=== PATIENT | male | born 1985 | race Caucasian/White ===

== ENCOUNTER 2019-11-30 16:53 | Emergency (ER) | payer OTHER, SELFPAY ==
--- NOTE | ~2019-11-30 | XR_ITS ---
EXAMINATION: XR ankle RT min 3V INDICATION: Right ankle pain, initial encounter TECHNIQUE: Four views of the right ankle are obtained. COMPARISON: None available FINDINGS: There is cortical irregularity of the distal fibula at and above the level of the tibial pl afond. There is adjacent soft tissue swelling of ankle. The ankle mortise is intact. Irregularity of the medial malleolus has the appearance of prior fracture or osteoarthritis. Dorsal and plantar calca radha enthesophytes are noted. IMPRESSION: 1. Findings suggestive of acute versus subacute distal fibular fracture. Reviewed, dictated and finalized at location A.
--- NOTE | ~2019-11-30 | XR_ITS ---
EXAMINATION: XR knee LT 3V DATE: 11/30/2019 17:28 INDICATION: Left knee pain TECHNIQUE: Four views of the left knee were obtained. COMPARISON: None. FINDINGS: Alignment is normal. No fracture or osteochondral lesion. Joint spaces are normal with no e rosions. No joint effusion/synovitis. Multiple soft tissue calcifications are noted. IMPRESSION: 1. No acute osseous abnormality. Reviewed, dictated and finalized at location A.
[2019-11-30 17:04] VITALS: BP 168/87; PULSE 91; RESP 14; TEMP 36.8; O2SAT 97
--- NOTE | 2019-11-30 17:12 | ED.GENADULT ---
HPI - General Adult General Chief complaint: Extremity Injury, Lower Stated complaint: r ankle pain History of Present Illness HPI narrative: Ashwin is a 34M with no significant PMH that presented to the ED with right ankle pain. He has had pain that cam on insidiously over the last month. Pain was the worst yesterday with 10/10 pain on the medial and anterior ankle. It is 5/10 after ibuprofen today. He denies any trauma, injury or inciting incident. He has broken both ankles as a child. Ashwin has had worsening left knee pain that has been gradually getting worse since he wrestles in high school 15 years ago. It is now sore when he walks on it and is especially sore today. No recent trauma or injury. Related Data Home Medications Medication Instructions Recorded Confirmed No Home Medications 11/30/19 11/30/19 Allergies Allergy/AdvReac Type Severity Reaction Status Date / Time No Known Allergies Allergy Unverified 01/27/17 12:03 Review of Systems Constitutional: Constitutional: Denies chills and Denies fever(s) Eyes: Eyes: Reports no additional eye complaints ENT: Reports system reviewed and no additional complaints, except as documented Cardiovascular: Cardiovascular: Denies chest pain and Denies radiating jaw, neck or arm pain Respiratory: Respiratory: Denies cough and Denies dyspnea Gastrointestinal: Gastrointestinal: Reports no additional gastrointestinal complaints Genitourinary: Genitourinary: Reports no additional male genitourinary complaints Musculoskeletal: Musculoskeletal: Reports as per HPI Integumentary/Breasts: Skin/Breast: Reports system reviewed and no additional complaints, except as docu Neurologic: Reports system reviewed and no additional complaints, except as documented Psychiatric: Psychiatric: Reports no additional psychiatric complaints Exam Const: General: no acute distress and alert Orientation/consciousness: patient oriented x3 Limitations: No altered mental status HENMT: Head: normal to inspection Eyes: Pupils: Equal, round and reactive pupils present Neck: Neck: normal visual inspection Chest: Chest palpation & inspection: normal inspection of the chest Resp: Effort & Inspection: normal respiratory effort and not tachypneic Auscultation: clear to auscultation bilaterally Cardio: Rate: regular rate Other: No lower extremity edema Skin: General skin exam: normal color Rashes: no rashes Neuro: General: patient oriented x3 and moves all extremities Extrem: Other: Right ankle slightly swollen with non-pitting edema. TTP over posterior medial Malleolus and over the navicular bone on the right ankle Left knee: No swelling or erythema. Negative anterior or posterior drawer tests, no varus or valgus laxity, negtive Kobe test. No TTP. Course Course Emergency Course: Ashwin was seen and evaluated. Order radioraphs of the left knee and right ankle. Refuses meds for pain. EXAMINATION: XR knee LT 3V DATE: 11/30/2019 17:28 INDICATION: Left knee pain TECHNIQUE: Four views of the left knee were obtained. COMPARISON: None. FINDINGS: Alignment is normal. No fracture or osteochondral lesion. Joint spaces are normal with no erosions. No joint effusion/synovitis. Multiple soft tissue calcifications are noted. IMPRESSION: 1. No acute osseous abnormality. EXAMINATION: XR ankle RT min 3V INDICATION: Right ankle pain, initial encounter TECHNIQUE: Four views of the right ankle are obtained. COMPARISON: None available FINDINGS: There is cortical irregularity of the distal fibula at and above the level of the tibial plafond. There is adjacent soft tissue swelling of ankle. The ankle mortise is intact. Irregularity of the medial malleolus has the appearance of prior fracture or osteoarthritis. Dorsal and plantar calcaneal enthesophytes are noted. IMPRESSION: 1. Findings suggestive of acute versus subacute distal fibular fracture. Radiographs were suspicious for fracture as abo
[2019-11-30 18:03] VITALS: RESP 15; O2SAT 97
== END 2019-11-30 18:05 | disposition home or self-care (01) ==
PROVIDERS: Emergency Provider Family Medicine
DX: S82.401A Unspecified fracture of shaft of right fibula, initial encounter for closed fracture (principal)
CPT/HCPCS: 73562; 73610; 99282; 99284; L2112

== ENCOUNTER 2020-10-13 06:07 | Emergency (ER) | payer OTHER, SELFPAY ==
[2020-10-13 06:23] LABS: Add Urine Microscopic? YES; Appearance Urine Cloudy (Clear); Bilirubin Urine Negative (Negative); Blood Urine 3+ (Negative); Color Urine Yellow (Yellow); Glucose Urine UA Negative (Negative); Ketones Urine Negative (Negative); Leukocyte Esterase Ur 2+ LEU/UL (Negative); Nitrate Urine Positive (Negative); Protein Urine 2+ (Negative); Specific Grav Ur 1.025 (1.010-1.020); Urobilinogen Urine 0.2 mg/dL (0.2-1.0)
--- NOTE | 2020-10-13 06:24 | ED.BACK ---
HPI - Back Pain/Injury General Chief Complaint: Back Pain/Injury Stated Complaint: Back pain Time Seen by Provider: 10/13/20 06:25 Source: patient Mode of arrival: ambulatory Limitations: no limitations History of Present Illness HPI Narrative: Patient states he has been having flank pain on the right side greater than the left since Thursday. He states he had fever and chills on Thursday. He has had increased frequency in urination and believes he has been constipated. Flank pain has been increasing in severity over the past few days and has been more severe this am. He comes in because of increasing flank pain which he says is now moderately severe, sharp and ongoing. This has not been relieved by measures taken at home. He states he has not had a bowel movement for several days. Onset (ago): day(s) Timing: constant Severity: moderate Quality: sharp Location: right flank Exacerbating factors: none Relieving factors: none Associated symptoms: denies other symptoms Related Data Home Medications Medication Instructions Recorded Confirmed No Home Medications 11/30/19 10/13/20 Allergies Allergy/AdvReac Type Severity Reaction Status Date / Time No Known Allergies Allergy Unverified 01/27/17 12:03 Review of Systems Constitutional: Constitutional: Reports chills and Reports fever(s) Eyes: Eyes: Reports no additional eye complaints ENT: Reports system reviewed and no additional complaints, except as documented Cardiovascular: Cardiovascular: Reports no additional cardiovascular complaints Respiratory: Respiratory: Reports no additional respiratory complaints Gastrointestinal: Gastrointestinal: Reports constipation Genitourinary: Genitourinary: Reports no additional male genitourinary complaints Musculoskeletal: Musculoskeletal: Reports no additional musculoskeletal complaints Integumentary/Breasts: Skin/Breast: Reports system reviewed and no additional complaints, except as docu Neurologic: Reports system reviewed and no additional complaints, except as documented Psychiatric: Psychiatric: Reports no additional psychiatric complaints Endocrine: Endocrine: Reports no additional endocrine complaints Hematologic/Lymphatic: Hematologic/Lymphatic: Reports no additional hematologic/lymphatic complaints Allergic/Immunologic: Allergic/Immunologic: Reports no additional allergic/immunologic complaints [facility] Past Medical History Medical History (Updated 10/13/20 @ 06:53 by Frank Luo MD) Ankle fracture Family History Family History (Updated 10/13/20 @ 06:42 by Frank Luo MD) Mother Obese Diabetes mellitus Social History Social History (Updated 10/13/20 @ 06:43 by Frank Luo MD) Smoking packs per day: 1 Smoking cigarettes per day: 20.0 Smoking status: Current every day smoker Tobacco type: cigarettes Alcohol intake: current Alcohol use details: drinks less through the week, more on weekends. Drinks beer Gender identity (if verbalized by the patient): Male Exam Const: General: no acute distress Orientation/consciousness: patient oriented x3 HENMT: Head: normal to inspection Ears: external ears normal General nose exam: Normal external nose present Eyes: Conjunctivae: conjunctivae normal Neck: Neck: normal visual inspection Chest: Chest palpation & inspection: normal inspection of the chest Resp: Effort & Inspection: normal respiratory effort Auscultation: clear to auscultation bilaterally Cardio: Rate: regular rate Rhythm: regular rhythm GI: Other: Soft, nontender Skin: General skin exam: normal color Neuro: General: patient oriented x3 and moves all extremities Extrem: General: normal to inspection Psych: Appearance: grossly normal Mental Status: mental status grossly normal Thought content: Yes Normal thought content present Course Course Emergency Course: labs pending, by urinalysis it appears he has pyelonephritis. Sign out to D
[2020-10-13 06:25] VITALS: BP 143/99; PULSE 94; RESP 20; TEMP 37.4; O2SAT 96
[2020-10-13 06:28] LABS: Bacteria Urine 4+ /hpf; RBC Urine >75 /hpf (0-2); Squamous Epithelial Cell Urine None seen /hpf (Few); WBC Urine >75 /hpf (0-3)
[2020-10-13 06:58] LABS: Basophils Absolute Auto 0.05 K/mm3 (0.00-0.10); Basophils Percent Auto 0.5 % (0.0-1.0); Eosinophils Absolute Auto 0.15 K/mm3 (0.02-0.50); Eosinophils Percent Auto 1.4 % (1.0-6.0); Hematocrit 43.5 % (40.0-54.0); Hemoglobin 14.9 g/dL (14.0-18.0); Immature Granulocyte Absolute 0.03 K/mm3 (0.00-0.00); Immature Granulocyte Percent A 0.3 % (0.0-0.0); Lymphocytes Absolute Auto 1.33 K/mm3 (1.10-4.50); Lymphocytes Percent Auto 12.3 % (18.0-42.0); Mean Corpuscular HGB Conc 34.3 g/dL (32.0-36.0); Mean Corpuscular Hemoglobin 32.3 pg (27.0-31.0); Mean Corpuscular Volume 94.2 fL (78.0-102.0); Mean Platelet Volume 9.8 fl (8.7-11.0); Monocytes Absolute Auto 1.07 K/mm3 (0.10-0.90); Monocytes Percent Auto 9.9 % (2.0-11.0); Neutrophils Absolute Auto 8.2 K/mm3 (1.7-7.2); Neutrophils Percent Auto 75.6 % (50.0-70.0); Platelet Count Result 216 K/mm3 (150-420); Red Blood Count 4.62 M/mm3 (4.70-6.10); Red Cell Distribution Width 12.2 % (11.6-14.4); White Blood Count 10.8 K/mm3 (4.8-10.8)
[2020-10-13] MEDS: cefTRIAXone 1 GM VIAL IM (07:08)
[2020-10-13 07:16] LABS: Alanine Aminotransferase 29 U/L (16-63); Albumin Level 3.2 g/dL (3.4-5.0); Alkaline Phosphatase 69 U/L (46-116); Anion Gap 6 mmol/L (8-16); Aspartate Amino Transferase 15 U/L (15-37); Bilirubin,Total 0.6 mg/dL (0.00-1.00); Blood Urea Nitrogen 17 mg/dL (7-18); Calcium 8.6 mg/dL (8.5-10.1); Carbon Dioxide 27 mmol/L (21-32); Chloride 102 mmol/L (98-108); Estimated CRCL calculation 122 ml/min; Estimated Glomerular Filt Rate > 60; Glucose 118 mg/dL (70-99); Osmolality Calculated 282 mOsm/kg (285-295); Sodium 135 mmol/L (136-145); Total Protein 7.5 g/dL (6.4-8.2)
[2020-10-13 07:20] LABS: Lactic Acid Reflex 0.7 mmol/L (0.4-2.0)
--- NOTE | 2020-10-13 07:29 | ED.BACK ---
HPI - Back Pain/Injury General Chief Complaint: Back Pain/Injury Stated Complaint: Back pain Time Seen by Provider: 10/13/20 06:25 Source: patient Limitations: no limitations History of Present Illness HPI Narrative: Patient states he has had back pain and increased frequency since .y Timing: constant Severity: moderate Quality: sharp Location: right flank Exacerbating factors: none Relieving factors: none Associated symptoms: denies other symptoms Related Data Home Medications Medication Instructions Recorded Confirmed No Home Medications 11/30/19 10/13/20 Allergies Allergy/AdvReac Type Severity Reaction Status Date / Time No Known Allergies Allergy Unverified 01/27/17 12:03 Review of Systems Constitutional: Constitutional: Reports no additional constitutional complaints Eyes: Eyes: Reports no additional eye complaints ENT: Reports system reviewed and no additional complaints, except as documented Cardiovascular: Cardiovascular: Reports no additional cardiovascular complaints Respiratory: Respiratory: Reports no additional respiratory complaints Gastrointestinal: Gastrointestinal: Reports constipation Genitourinary: Genitourinary: Reports no additional male genitourinary complaints Musculoskeletal: Musculoskeletal: Reports no additional musculoskeletal complaints Integumentary/Breasts: Skin/Breast: Reports system reviewed and no additional complaints, except as docu Neurologic: Reports system reviewed and no additional complaints, except as documented Psychiatric: Psychiatric: Reports no additional psychiatric complaints Endocrine: Endocrine: Reports no additional endocrine complaints Hematologic/Lymphatic: Hematologic/Lymphatic: Reports no additional hematologic/lymphatic complaints Allergic/Immunologic: Allergic/Immunologic: Reports no additional allergic/immunologic complaints [facility] Past Medical History Medical History (Updated 10/13/20 @ 06:53 by Frank Luo MD) Ankle fracture Family History Family History (Updated 10/13/20 @ 06:42 by Frank Luo MD) Mother Obese Diabetes mellitus Social History Social History (Updated 10/13/20 @ 06:43 by Frank Luo MD) Smoking packs per day: 1 Smoking cigarettes per day: 20.0 Smoking status: Current every day smoker Tobacco type: cigarettes Alcohol intake: current Alcohol use details: drinks less through the week, more on weekends. Drinks beer Gender identity (if verbalized by the patient): Male Exam Const: General: no acute distress Orientation/consciousness: patient oriented x3 HENMT: Head: normal to inspection Ears: external ears normal Face and sinus: normal facial exam Mouth: Yes moist mucous membranes Eyes: Conjunctivae: conjunctivae normal Neck: Neck: normal visual inspection Chest: Chest palpation & inspection: normal inspection of the chest Resp: Effort & Inspection: normal respiratory effort Auscultation: clear to auscultation bilaterally Cardio: Rate: regular rate Rhythm: regular rhythm GI: Auscultation: normal bowel sounds (nontender) : Other: right flank pain Skin: General skin exam: normal color Neuro: General: patient oriented x3 and moves all extremities Extrem: General: normal to inspection Psych: Appearance: grossly normal Mental Status: mental status grossly normal Thought content: Yes Normal thought content present Course Course Emergency Course: Labs were reviewed. He was given Rocephin 2 grams IM for what is felt to be pyelonephritis. A urine culture was ordered. We will ask him to follow up with his family dotor next week or return to ER to review urine culture results. Vital Signs Vital signs: Vital Signs Temperature 37.4 C 10/13/20 06:25 Pulse Rate 94 10/13/20 06:25 Respiratory Rate 20 10/13/20 06:25 Blood Pressure 143/99 H 10/13/20 06:25 Pulse Oximetry 96 10/13/20 06:25 Temperature 37.4 C 10/13/20 06:25 Pulse Rate
[2020-10-13 07:50] VITALS: BP 151/105
== END 2020-10-13 07:50 | disposition home or self-care (01) ==
PROVIDERS: Emergency Provider Emergency Medicine
DX: N10 Acute pyelonephritis (principal)
CPT/HCPCS: 36415; 80053; 81001; 83605; 85025; 87077; 87086; 87088; 87186; 96372; 99282; 99283; J0696

== ENCOUNTER 2020-10-16 15:42 | Outpatient (CLI) | payer OTHER, SELFPAY ==
[2020-10-16 15:56] LABS: Hematocrit 43.1 % (40.0-54.0); Hemoglobin 14.9 g/dL (14.0-18.0); Mean Corpuscular HGB Conc 34.6 g/dL (32.0-36.0); Mean Corpuscular Hemoglobin 32.4 pg (27.0-31.0); Mean Corpuscular Volume 93.7 fL (78.0-102.0); Mean Platelet Volume 9.6 fl (8.7-11.0); Platelet Count Result 274 K/mm3 (150-420); Red Cell Distribution Width 12.1 % (11.6-14.4); White Blood Count 8.7 K/mm3 (4.8-10.8)
[2020-10-16 16:15] LABS: Hemoglobin A1C 5.5 % (<5.7)
[2020-10-16 17:07] LABS: Alanine Aminotransferase 54 U/L (16-63); Albumin Level 3.7 g/dL (3.4-5.0); Alkaline Phosphatase 76 U/L (46-116); Anion Gap 9 mmol/L (8-16); Aspartate Amino Transferase 28 U/L (15-37); Bilirubin,Total 0.4 mg/dL (0.00-1.00); Blood Urea Nitrogen 21 mg/dL (7-18); Calcium 9.2 mg/dL (8.5-10.1); Carbon Dioxide 26 mmol/L (21-32); Chloride 101 mmol/L (98-108); Cholesterol 181 mg/dL (0-200); Estimated Glomerular Filt Rate > 60; Glucose 93 mg/dL (70-99); HDL Direct 44 mg/dL (40-60); LDL Cholesterol Calculated 117 mg/dL (<130); Osmolality Calculated 285 mOsm/kg (285-295); Potassium 4.2 mmol/L (3.5-5.1); Prostate Specific Antigen 8.8 ng/mL (< OR = 4.0); Sodium 136 mmol/L (136-145); Total Protein 7.4 g/dL (6.4-8.2); Triglycerides 98 mg/dL (0-150)
[2020-10-16 17:25] LABS: Thyroid Stimulating Hormone Reflex 1.15 u/IU/mL (0.36-3.74)
== END 2020-10-16 15:43 | disposition home or self-care (01) ==
LOC: CHSLAB 15:47
PROVIDERS: PCP Family Medicine; Visit Provider Family Medicine
DX: N12 Tubulo-interstitial nephritis, not specified as acute or chronic (principal); E11.9 Type 2 diabetes mellitus without complications; I10 Essential (primary) hypertension; E66.9 Obesity, unspecified; Z12.5 Encounter for screening for malignant neoplasm of prostate
CPT/HCPCS: 36415; 80053; 80061; 83036; 84153; 84443; 85027; G0103

== ENCOUNTER 2021-07-07 11:45 | Emergency (ER) | payer OTHER, SELFPAY ==
--- NOTE | ~2021-07-07 | XR_ITS ---
XR finger 2nd LT min 2V DATE: 07/07/2021 12:38 INDICATION: Dog bite. Pain and swelling. TECHNIQUE: 4 views COMPARISON: None FINDINGS: There is soft tissue swelling but no subcutaneous emphysema. No fracture or dislocation, pe riosteal reaction or bone destruction is detected. IMPRESSION: No opaque foreign body, subcutaneous emphysema, fracture or dislocation Reviewed, dictated and finalized at location A. R HELPER IMPRESSION: No opaque foreign body, subcutaneous emphysema, fracture or disloca tion
--- NOTE | 2021-07-07 12:11 | ED.ANIMALBIT ---
HPI - Animal Bite General Chief Complaint: Animal Bite Stated Complaint: dog bite on L index and middle finger last night Time Seen by Provider: 07/07/21 12:11 Source: patient Mode of arrival: ambulatory Limitations: no limitations History of Present Illness HPI narrative: 35-year-old previously well man comes in today complaining of pain and swelling of his left index and long fingers after he was bit by his own dog ( 50 lb boxer) yesterday afternoon. Index finger is much more painful with movement red and swollen. complaint: animal bite Onset (ago): day(s) (1) Animal: dog Description of animal: household pet Mechanism: bite Location - Extremities: Left: hand Pain description: sharp Context: animals fighting Associated symptoms: none Related Data Patient tetanus UTD: No Home Medications Medication Instructions Recorded Confirmed omeprazole 20 mg tablet,delayed 20 mg PO DAILY 10/16/20 release Allergies Allergy/AdvReac Type Severity Reaction Status Date / Time No Known Allergies Allergy Verified 02/19/21 12:34 Review of Systems Review of Systems: All systems reviewed & are unremarkable except as noted in HPI and below Constitutional: Constitutional: Denies chills and Denies fever(s) Musculoskeletal: Musculoskeletal: Reports arthralgias and Denies joint swelling Integumentary/Breasts: Skin/Breast: Denies pruritus, Denies erythema and Denies rash Neurologic: Denies vertigo, Denies dizziness, Denies syncope, Denies focal weakness and Denies numbness Hematologic/Lymphatic: Hematologic/Lymphatic: Denies easy bleeding and Denies easy bruising PMFSH Past Medical History Medical History Ankle fracture Family History Family History Mother Obese Diabetes mellitus Social History Social History Smoking packs per day: 1 Smoking cigarettes per day: 20.0 Smoking status: Current every day smoker Tobacco type: cigarettes Alcohol intake: current Alcohol use details: drinks less through the week, more on weekends. Drinks beer Gender identity (if verbalized by the patient): Male Exam Const: General: healthy appearing and alert Orientation/consciousness: patient oriented x3 Limitations: no limitations Other: Moderate acute distress Skin: General skin exam: normal color, no jaundice and no pallor Rashes: no rashes Neuro: General: patient oriented x3, moves all extremities, no focal motor deficits and CN's II-XI intact bilaterally Gait exam (Neuro): Normal gait present Extrem: General: no clubbing, cyanosis or edema Other: 1 cm transverse laceration between the PIP and the IP on the palmar aspect of the left index finger. There is swelling and surrounding erythema. There is tenderness with movement of the DIP and PIP. There are some more super his facial lacerations on the dorsum of the left ring finger with minimal erythema. No drainage. Psych: Appearance: grossly normal and well kempt Mental Status: mental status grossly normal Affect: normal affect Attitude: cooperative Thought content: Yes Normal thought content present Course Vital Signs Vital signs: Vital Signs Temperature 36.7 C 07/07/21 12:34 Pulse Rate 102 H 07/07/21 12:34 Respiratory Rate 20 07/07/21 12:34 Blood Pressure 128/102 H 07/07/21 12:34 Pulse Oximetry 98 07/07/21 12:34 Temperature 36.7 C 07/07/21 12:34 Pulse Rate 102 H 07/07/21 12:34 Respiratory Rate 20 07/07/21 12:34 Blood Pressure 128/102 H 07/07/21 12:34 Pulse Oximetry 98 07/07/21 12:34 MDM - Animal Bite Differential Diagnosis Differential diagnosis: Likely dog bite Imaging Data Radiologist's impression: ITS Impressions Finger X-Ray 07/07/21 12:42 IMPRESSION: No opaque foreign body, subcutaneous emphysema, fracture or dislocation
[2021-07-07] MEDS: HYDROcodone/acetaminophen (*CRX) 5-325 MG TABLET 1 TAB PO (12:32)
[2021-07-07] MEDS: TETANUS,DIPHTHERIA,AC PERTUSSIS ADULT 0.5 ML (ADACEL) IM (12:32)
[2021-07-07] MEDS: AMOXICILLIN/CLAVULANATE K 875-125 MG TAB 1 TABLET PO (12:32)
[2021-07-07 12:34] VITALS: BP 128/102; PULSE 102; RESP 20; TEMP 36.7; O2SAT 98
[2021-07-07 13:26] VITALS: BP 142/108; PULSE 85; RESP 20; TEMP 36.8; O2SAT 95
== END 2021-07-07 13:28 | disposition home or self-care (01) ==
PROVIDERS: Emergency Provider Emergency Medicine; PCP Family Medicine
DX: S61.452A Open bite of left hand, initial encounter (principal); W54.0XXA Bitten by dog, initial encounter
CPT/HCPCS: 73140; 90471; 90715; 99283; A9270

== ENCOUNTER 2023-11-01 22:00 | Emergency (ER) | payer OTHER, SELFPAY ==
[2023-11-01 22:00] VITALS: BP 164/88; PULSE 86; RESP 22; TEMP 37.1; O2SAT 97
[2023-11-01] MEDS: SULFAMETHOXAZOLE/TRIMETHOPRIM 800/160 MG DS TABLET 1 TAB PO (22:37)
--- NOTE | 2023-11-01 22:51 | ED.GENADULT ---
HPI - General Adult General Chief complaint: Extremity Injury, Upper Stated complaint: Lt elbow pain Time Seen by Provider: 11/01/23 22:09 History of Present Illness HPI narrative: the patient is a 38-year-old male who fell off of a 20 ft roof landing on his side 10/27/2023, 5 days ago. He was treated at [facility] as he had sustained a fracture of T9 and a fracture of L3. This was treated non operatively with a brace which she still has on. He underwent open reduction internal fixation of a left elbow fracture surgically on 10/30/2023, 2 days ago. A dressing was placed. He was discharged from [facility] yesterday after a 24 hour course of intravenous antibiotics. He has noticed swelling at the left elbow surgical site with warmth and redness, and he is concerned about infection. He is on oxycodone for pain is needed. No other complaints. Related Data Home Medications Medication Instructions Recorded Confirmed omeprazole 20 mg tablet,delayed 20 mg PO DAILY 10/16/20 11/01/23 release apixaban 2.5 mg tablet 2.5 mg PO BID 11/01/23 11/01/23 methocarbamol 1,000 mg tablet 1,000 mg PO TID 11/01/23 11/01/23 oxycodone 5 mg tablet 5 mg PO Q4H PRN Pain 11/01/23 11/01/23 Allergies Allergy/AdvReac Type Severity Reaction Status Date / Time No Known Allergies Allergy Verified 11/01/23 22:25 Review of Systems Review of Systems: All systems reviewed & are unremarkable except as noted in HPI and below Constitutional: Constitutional: Denies chills, Denies excessive sweating, Denies fatigue, Denies fever(s) and Denies headache(s) Eyes: Eyes: Denies change in vision and Denies photophobia ENT: Denies dysphagia, Denies dizziness, Denies headache(s), Denies lip swelling, Denies nasal congestion, Denies sore throat and Denies tongue swelling Cardiovascular: Cardiovascular: Denies chest pain, Denies syncope, Denies rapid heart rate and Denies dyspnea Respiratory: Respiratory: Denies cough, Denies dyspnea and Denies wheezing Gastrointestinal: Gastrointestinal: Denies abdominal pain, Denies constipation, Denies dysphagia, Denies diarrhea, Denies nausea and Denies vomiting Genitourinary: Genitourinary: Denies hematuria, Denies dysuria, Denies urinary frequency and Denies urinary urgency Musculoskeletal: Musculoskeletal: Reports back pain (following the fall), Denies myalgias, Reports arthralgias (left elbow), Reports joint swelling (left elbow) and Denies numbness Integumentary/Breasts: Skin/Breast: Denies pruritus, Reports erythema (left elbow) and Denies rash Neurologic: Denies confusion, Denies dizziness, Denies syncope, Denies headache(s), Denies focal weakness and Denies numbness Psychiatric: Psychiatric: Denies anxiety and Denies confusion Endocrine: Endocrine: Denies excessive sweating and Denies fatigue Hematologic/Lymphatic: Hematologic/Lymphatic: Denies easy bleeding and Denies easy bruising Allergic/Immunologic: Allergic/Immunologic: Denies lip swelling, Denies tongue swelling and Denies wheezing PMFSH Past Medical History Medical History Ankle fracture Family History Family History Mother Obese Diabetes mellitus Social History Social History Smoking packs per day: 1 Smoking cigarettes per day: 20.0 Smoking status: Current every day smoker Tobacco type: cigarettes Alcohol intake: current Alcohol use details: drinks less through the week, more on weekends. Drinks beer Gender identity (if verbalized by the patient): Male Exam Const: General: healthy appearing, no acute distress, alert and well nourished Nutritional Appearance: well nourished Orientation/consciousness: patient oriented x3 Limitations: no limitations Other: obese HENMT: Head: normal to inspection Ears: external ears normal Face/No
[2023-11-01] MEDS: HYDROcodone/acetaminophen (*CRX) 5-325 MG TABLET 2 TAB PO (22:54)
[2023-11-01 23:02] LABS: Basophils Absolute Auto 0.06 K/mm3 (0.00-0.10); Basophils Percent Auto 0.8 % (0.0-1.0); Eosinophils Absolute Auto 0.17 K/mm3 (0.02-0.50); Eosinophils Percent Auto 2.4 % (1.0-6.0); Hematocrit 33.1 % (40.0-54.0); Hemoglobin 10.9 g/dL (14.0-18.0); Immature Granulocyte Percent A 1.4 % (0.0-0.0); Lymphocytes Absolute Auto 1.48 K/mm3 (1.10-4.50); Lymphocytes Percent Auto 20.9 % (18.0-42.0); Mean Corpuscular HGB Conc 32.9 g/dL (32-36); Mean Corpuscular Hemoglobin 31.4 pg (27.0-31.0); Mean Corpuscular Volume 95.4 fL (78.0-102.0); Mean Platelet Volume 9.3 fl (8.7-11.0); Monocytes Absolute Auto 0.78 K/mm3 (0.10-0.90); Neutrophils Percent Auto 63.5 % (50.0-70.0); Platelet Count Result 243 K/mm3 (150-420); Red Blood Count 3.47 M/mm3 (4.70-6.10); Red Cell Distribution Width 12.6 % (11.6-14.4); White Blood Count 7.1 K/mm3 (4.8-10.8)
[2023-11-01] MEDS: ceFAZolin 2 GM/NS 50 ML 2 GM/50 ML BAG IVPB (23:02)
[2023-11-01 23:22] LABS: Alanine Aminotransferase 156 U/L (16-63); Albumin Level 2.8 g/dL (3.4-5.0); Alkaline Phosphatase 63 U/L (46-116); Anion Gap 10 mmol/L (4-12); Aspartate Amino Transferase 187 U/L (15-37); Bilirubin,Total 0.8 mg/dL (0.00-1.00); Blood Urea Nitrogen 13 mg/dL (7-18); CRP 9.3 mg/dL (0.0-0.9); Calcium 8.2 mg/dL (8.5-10.1); Carbon Dioxide 30 mmol/L (21-32); Chloride 100 mmol/L (98-108); Estimated CRCL calculation 143 ml/min; Estimated Glomerular Filt Rate > 60; Glucose 132 mg/dL (70-99); Osmolality Calculated 292 mOsm/kg (285-295); Potassium 3.4 mmol/L (3.5-5.1); Sodium 140 mmol/L (136-145); Total Protein 6.7 g/dL (6.4-8.2)
[2023-11-01 23:23] LABS: Lactic Acid Reflex 1.4 mmol/L (0.4-2.0)
[2023-11-02] MEDS: POTASSIUM CHLORIDE 20 MEQ ER TABLET 40 MEQ PO (00:07)
[2023-11-02 00:10] LABS: Erythrocyte Sedimentation Rate 54 mm/hr (0-15)
[2023-11-02 00:40] VITALS: BP 133/85; PULSE 79; RESP 18; TEMP 36.8; O2SAT 99
--- NOTE | 2023-11-08 12:34 | PC.NURSE ---
FINAL BLOOD CULTURE NO GROWTH AFTER 5 DAYS
== END 2023-11-02 00:40 | disposition home or self-care (01) ==
PROVIDERS: Emergency Provider Emergency Medicine; PCP Family Medicine
DX: L03.114 Cellulitis of left upper limb (principal); Z98.890 Other specified postprocedural states; Z79.01 Long term (current) use of anticoagulants; F17.210 Nicotine dependence, cigarettes, uncomplicated
CPT/HCPCS: 36415; 80053; 83605; 85025; 85652; 86140; 87040; 96365; 99284; A9270; J0690

== ENCOUNTER 2023-12-30 09:05 | Outpatient (RCR) | payer OTHER, SELFPAY ==
--- NOTE | 2023-12-30 09:53 | PTOPEVAL1 ---
Assessment and note entered by Mian Cardoza Evaluation Information Assessment Status Evaluation Diagnosis T9 compression fx, back pain Onset 10/27/23 Subjective Information Pt. fell 20' when up on a roof after the hooks on his extension ladder gave out. He reports that he broke the left elbow and fracture the spine during the fall. He describes his current back pain on the lower left side of the low back. He reports that he still has pain with bending forward and states that soreness is constant. He reports pain has become less intense, but is still constant. He reports that he was in a TLSO brace for 8 weeks and it was removed last week. 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 He reports that his goal for therapy is to be able to return to work and be able to do all activities without limitation. Reported Pain Level Pain Score 4: Self Report Assessment PT Clinical Summary Pt. is a 38 year old male who enters the clinic post T9 fx due to a fall at work. Pt. currently presents with impaired ROM, impaired abdominal and l.e. strength, impaired flexibility, impaired gait and functional decline. Continued skilled PT is indicated in order to improve these areas to allow the pt. to be able to complete all IADL's with improved efficiency. Plan of Care Interventions Electrical Stimulation,Manual Therapy,Neuro Re- education,Patient/Caregiver Educati,Therapeutic Activities,Therapeutic Exercise PT Services Indicated Yes Treatment Frequency and 3x/week x 12 visits Duration These treatments will address the objective and functional deficits as defined above. The patient will be advanced safely and appropriately in order for the patient to progress towards his/her prior level of function. Additional exercises will be introduced and as well as a comprehensive home exercise program upon discharge, if needed, ?to ensure carryover of functional gains achieved in the clinic. This treatment plan has been reviewed and agreement upon by the patient.
--- NOTE | 2023-12-30 09:54 | OPREHPOC ---
Outpatient Therapy Plan of Care This is a Multidisciplinary Plan of Care that may contain components documented by all disciplines (PT, OT, and ST.) PT Problem 1 PT Problem #1 Knowledge Deficit PT Goal 1 Goal Independent with a HEP addressing strength and mobility Target Visit 2 PT Problem 2 PT Problem #2 Impaired Flexibility PT Goal 1 Goal Pt. will present at 10 degrees from full knee extension with the 90/90 test Pt. will demonstrate full lumbar flexion and extension, as well as rotational ROM to complete work related duties. Target Visit 12 PT Problem 3 PT Problem #3 Impaired Gait PT Goal 1 Goal Pt. will demonstrate the ability to ambulate over a duration of 20 minutes with equal right and left stance time. Target Visit 12 PT Problem 4 PT Problem #4 Impaired Functional Mobil PT Goal 1 Goal Pt. will demonstrate the ability to complete floor to waist lifting with 20# or greater with safe body mechanics Target Visit 12
--- NOTE | 2023-12-31 11:57 | PCPTNOTE ---
I reviewed the License Pending Therapist's documentation and agree with the findings.
--- NOTE | 2024-01-04 11:59 | PCPTNOTE ---
On 01/04/24, the license pending CARDIOLOGY TECHNICIAN, [Patrziia Rousseau ], provided care and completed [facility] documentation on this patient. I have reviewed the license pending CARDIOLOGY TECHNICIAN's documentation and agree with the findings.
--- NOTE | 2024-01-06 15:40 | PCPTNOTE ---
On 01/06/24, the license pending GEOLOGICAL SAMPLE TESTER, [ Patrizia Rousseau], provided care and completed [facility] documentation on this patient. I have reviewed the license pending GEOLOGICAL SAMPLE TESTER's documentation and agree with the findings.
--- NOTE | 2024-01-08 14:41 | PCPTNOTE ---
I reviewed the License Pending Therapist's documentation and agree with the findings.
--- NOTE | 2024-01-18 08:52 | PCPTNOTE ---
Addendum entered by Patrizia Rousseau 01/18/24 09:10: Called work comp patient and patient states he is sick and wants to cancel his appointment. Original Note: Patient called & cancelled scheduled appointment this date due to [ illness]
--- NOTE | 2024-01-20 08:12 | PCPTNOTE ---
No call no show this date. Patient was called but did not answer.
--- NOTE | 2024-01-25 07:39 | PCPTNOTE ---
I reviewed the License Pending Therapist's documentation and agree with the findings on 01/22/24.
--- NOTE | 2024-01-25 17:09 | PCPTNOTE ---
On 01/25/24, the license pending ELECTRICAL DESIGN TECHNOLOGIST, [Patrizia Rousseau ], provided care and completed [facility] documentation on this patient. I have reviewed the license pending ELECTRICAL DESIGN TECHNOLOGIST's documentation and agree with the findings.
--- NOTE | 2024-01-27 15:24 | OPREHPOC ---
Outpatient Therapy Plan of Care This is a Multidisciplinary Plan of Care that may contain components documented by all disciplines (PT, OT, and ST.) PT Problem 1 PT Problem #1 Knowledge Deficit PT Goal 1 Goal Independent with a HEP addressing strength and mobility Target Visit 2 Progress Met PT Problem 2 PT Problem #2 Impaired Flexibility PT Goal 1 Goal Pt. will present at 10 degrees from full knee extension with the 90/90 test. not met Pt. will demonstrate full lumbar flexion and extension, as well as rotational ROM to complete work related duties. partially met Target Visit 12 PT Problem 3 PT Problem #3 Impaired Gait PT Goal 1 Goal Pt. will demonstrate the ability to ambulate over a duration of 20 minutes with equal right and left stance time. met Target Visit 12 Progress Met PT Problem 4 PT Problem #4 Impaired Functional Mobil PT Goal 1 Goal Pt. will demonstrate the ability to complete floor to waist lifting with 20# or greater with safe body mechanics. met Target Visit 12 Progress Met PT Problem 5 PT Problem #5 Impaired Functional Mobil PT Goal 1 Goal 1. oswestry to display less than 20% functional defictis Target Visit 12
--- NOTE | 2024-01-27 15:24 | PTOPPROG ---
Assessment and note entered by JT File, PT Evaluation Information Assessment Status Progress Diagnosis T9 compression fx, back pain Onset 10/27/23 Subjective Information patient reports he is improving. he reports he feels pretty good today. he reports no pain in the back, but does report some flicks in the back every now and then. he reports it is more of an annoyance and discomfort. he reports to be able to return to work he needs to be able to lift, stand, carry up to 100lbs at times, and go up and down ladders daily. Assessment PT Clinical Summary mr. palencia presents to skilled PT for his 10th skilled therapy visit today. he presents without pain, but with tinges of a flickering in the middle back. he has made progress in lumbar rom, strength, and ambulation mechanics/endurance. he continues to lack achievement of goals for full pain free/symptom free lumbar rom, and bilateral hamstrings flexibility. however, he has achieved lifting goal, HEP goal, and walking goal. he would benefit from continued skilled PT to achieve his remaining functional goals to be able to safely return to prior level work performance. Plan of Care Interventions Electrical Stimulation,Manual Therapy,Neuro Re- education,Patient/Caregiver Educati,Therapeutic Activities,Therapeutic Exercise PT Services Indicated Yes Treatment Frequency and continue skilled PT per initial POC Duration These treatments will address the objective and functional deficits as defined above. The patient will be advanced safely and appropriately in order for the patient to progress towards his/her prior level of function. Additional exercises will be introduced and as well as a comprehensive home exercise program upon discharge, if needed, ?to ensure carryover of functional gains achieved in the clinic. This treatment plan has been reviewed and agreement upon by the patient.
--- NOTE | 2024-01-29 10:31 | PCPTNOTE ---
I reviewed the License Pending Therapist's documentation and agree with the findings.
--- NOTE | 2024-02-01 09:43 | PTOPPROG ---
Assessment and note entered by Mian Cardoza Evaluation Information Assessment Status Progress Diagnosis T9 compression fx, back pain Onset 10/27/23 Subjective Information Pt. reports that he is doing better since beginning therapy. He reports that he does experience pain as activity level increases, but it is continuing to improve and much less intense. He reports that he has not lifted the amounts of weight required of his job, and is fearful that he will re-injure himself. He states that he has avoided any lifting at home. He states that he would like to continue to improve his strength to allow him to return to work without limitation. Assessment PT Clinical Summary Mr. Mao has attended a total of 12 sessions focusing on trunk mobility, flexibility, core strength and lifting mechanics. He has demonstrated excellent progress in regards to strength and mobility. Despite this progress, pt. remains limited in his ability to complete his required work tasks. At this time recommend pt. transition into an work conditioning program that will allow him to further improve strength and endurance, to safely and successfully complete all work related duties. Plan of Care Interventions Electrical Stimulation,Hot Pack/Cold Pack,Manual Therapy,Neuro Re-education,Therapeutic Activities, Therapeutic Exercise Other Interventions work conditioning PT Services Indicated Yes Treatment Frequency and Recommend pt. continue with a work conditioning Duration program 3-4x/week x 12 visits These treatments will address the objective and functional deficits as defined above. The patient will be advanced safely and appropriately in order for the patient to progress towards his/her prior level of function. Additional exercises will be introduced and as well as a comprehensive home exercise program upon discharge, if needed, ?to ensure carryover of functional gains achieved in the clinic. This treatment plan has been reviewed and agreement upon by the patient.
--- NOTE | 2024-02-19 17:24 | PCPTNOTE ---
I reviewed the License Pending Therapist's documentation and agree with the findings.
--- NOTE | 2024-02-29 14:55 | PCPTNOTE ---
Patient did not show up for scheduled appointment this date.
--- NOTE | 2024-03-18 09:02 | OPREHPOC ---
Outpatient Therapy Plan of Care This is a Multidisciplinary Plan of Care that may contain components documented by all disciplines (PT, OT, and ST.) PT Problem 1 PT Problem #1 Knowledge Deficit PT Goal 1 Goal / Goal Update Independent with a HEP addressing strength and mobility Target Visit 2 Progress Met PT Problem 2 PT Problem #2 Impaired Flexibility PT Goal 1 Goal / Goal Update Pt. will present at 10 degrees from full knee extension with the 90/90 test. met Pt. will demonstrate full lumbar flexion and extension, as well as rotational ROM to complete work related duties. met Target Visit 12 Progress Met PT Problem 3 PT Problem #3 Impaired Gait PT Goal 1 Goal / Goal Update Pt. will demonstrate the ability to ambulate over a duration of 20 minutes with equal right and left stance time. met Target Visit 12 Progress Met PT Problem 4 PT Problem #4 Impaired Functional Mobil PT Goal 1 Goal / Goal Update Pt. will demonstrate the ability to complete floor to waist lifting with 20# or greater with safe body mechanics. met Target Visit 12 Progress Met PT Goal 2 Goal / Goal Update New Goals established 02/01/24 Pt. will safely lift 50# from floor to waist to complete work related duties. Pt. will demonstrate ability to complete 2 consecutive hours of simulated work related duties safely and without pain increase to return to work. met Target Visit 24 PT Problem 5 PT Problem #5 Impaired Functional Mobil PT Goal 1 Goal / Goal Update 1. oswestry to display less than 20% functional defictis Target Visit 12 Progress Met
--- NOTE | 2024-03-18 09:02 | PTOPDC ---
Assessment and note entered by JT File, PT Evaluation Information Assessment Status Discharge Diagnosis T9 compression fx, back pain Onset 10/27/23 Subjective Information patient reports he feels he is ready to return to work. he reports he has pain all the time, but reports he did hurt before the injury. he reports he is compliant with his HEP at home. he reports he does have a follow up xray soon, and reports he is planning to go to his chiropractor after this xray to have him adjust the lower portion of his spine to relieve the last of his tightness. Reported Pain Level Pain Score 1: Self Report Pain Score 0: Self Report Assessment PT Clinical Summary mr. palencia presents to skilled PT for his 24th skilled PT visit. as of this date, he reports pain is low and managed, he has met all goals for skilled PT, and is ready to return to prior level work duties. he will be DC'd from skilled PT today with recommendation to allow patient to return to full prior level work activities/duties. he will continue with HEP on his own to maintain core strength/stability. Plan of Care PT Services Indicated Yes
== END 2024-03-18 13:40 | disposition home or self-care (01) ==
LOC: CHSPT 09:05
PROVIDERS: PCP Family Medicine; Visit Provider Neurological Surgery
DX: S22.070D Wedge compression fracture of T9-T10 vertebra, subsequent encounter for fracture with routine healing (principal)
CPT/HCPCS: 97014; 97110; 97140; 97150; 97161; 97530; 97545; G0283

== ENCOUNTER 2024-12-11 16:12 | Emergency (ER) | payer OTHER, SELFPAY ==
[2024-12-11] MEDS: TETANUS,DIPHTHERIA,AC PERTUSSIS ADULT 0.5 ML (ADACEL) IM (16:50)
--- OUTSIDE RECORDS SUMMARY | 2024-12-12 08:04 | XMS_ITS | Clinical Summary ---
Author Organization [facility] Address [address] [place] [address] Care Team Providers Care Apparatus Lineman Name Role Phone Aleja Eduardo NUGENT Primary Care Provider [phone] Source Comments [facility],non-owned Affiliates and Associated Physician Practices is amultiple site organization consisting of ambulatory clinics and hospital sitesin [place], [place], [place] and [place]. This disclosure is being madepursuant to the Care Everywhere program and may not contain all information available regarding this patient. Last updated 18.[facility] Allergies No known active allergies Medications * Be aware that medications may not be up to date on this document. Alwaysverify current medications with the patient. apixaban (Eliquis) 2.5 MG tablet Take 1 (one) tablet by mouth 2 times daily for 35 days 70 tablet 4 Active lidocaine (Lidoderm) 5 % patch Apply 2 (two) patches to skin every 24 hours Apply patch to most painful area and remove after 12 hours. May reapply a new patch 12 hours later. 4 Active Additional Information Patient not taking.Reported on 11/16/2023 oxyCODONE, immediate release, (Roxicodone) 5 MG tabletIndicatio ns:Closed fracture of ninth thoracic vertebra, unspecified fracture morphology, initial encounter ([facility]) Take 1 (one) tablet by mouth every 4 hours as needed 20 tablet 4 Active Additional Information Patient not taking.Reported on 11/16/2023 methocarbamol (Robaxin) 500 MG tablet Take 2 (two) tablets by mouth every 6 hours as needed for Muscle Spasms 30 tablet Active Additional Information Patient not taking.Reported on 12/01/2023 acetaminophen (Tylenol) 325 MG tablet Take 1 (one) tablet by mouth every 4 hours as needed for Fever or Pain Maximum allowable Acetaminophen amount = 4 Grams (4000 mg) / 24 hours. Active Active Problems Problem Noted Date Diagnosed Date Acute pain 10/28/2023 Fall from ladder 10/27/2023 Closed fracture of olecranon process of left ulna, initial encounter 10/27/2023 Closed fracture of ninth tho racic vertebra, unspecified fracture morphology, initial encounter 10/27/2023 Immunizations Immunization Administration Dates Next Due TDAP (7yrs+) 10/27/2023 Social History Tobacco Use Types Packs/Day Years Used Date Smoking Tobacco: Some Days Cigarettes Tobacco Cessation:Ready to Q uit: Not Asked; Counseling Given: Not Answered Alcohol Use Standard Drinks/Week Comments Yes 0 (1 standard drink = 0.6 oz pur e alcohol) socially AUDIT-C Answer Date Recorded Q1: How often do you have a drink containing alc ohol? Never 10/28/2023 Q2: How many drinks containi ng alcohol do you have on a typical day when you are drinking? 1 or 2 10/28/2023 Q3: How often do you have si x or more drinks on one occasion? Less than monthly 10/28/2023 Overall Financial Resource Strain (CARDIA) Answe r Date Recorded How hard is it for you to pa y for the very basics like food, housing, medical care, and heating? Not hard at all 10/30/2023 PHQ-2 Answer Date Recorded Patient Health Questionnaire-2 Score 0 04/19/2024 [facility] Occupat ional Health - Occupational Stress Questionnaire Answer Date Recorded Do you feel stress - tense, restless, nervous, or anxious, or unable to sleep at night because your mind is troubled all the time - these days? Not at all 10/30/2023 Hunger Vital Sign Answer Date Recorded Within the past 12 months, y ou worried that your food would run out before you got the money to buy more. Never true 10/30/19 24 Within the past 12 months, t he food you bought just didn't last and you didn't have money to get more. Never true 10/30/2023 PRAPARE - Transportation Answer Date Re corded In the past 12 months, has l ack of transportation kept you from medical appointments or from getting medications? No 10/11 In the past 12 months, has l ack of transportation kept you from meetings, work, or from getting things needed for daily living? No 10/30/2023 Housing Stability Vital Sign Answer Jamison e Recorded In the last 12 months, was t here a time when you were not able to pay the mortgage or rent on time? No 10/30/2023 In the last 12 months, how many places have you lived? 1 10/30/2023 In the last 12 months, was t here a time when you did not have a steady place to sleep or slept in a assisted (including now)? 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 Gender Identity Not on file Sexual Orientation Not on file Last Filed Vital Signs Vital Sign Reading Time Taken Comments Blood Pressure 131/88 03/28/2024 9:41 AM CDT Pulse 79 03/28/2024 9:41 AM CDT Temperature 36.8 C (98.3 F) 03/28/2024 9:41 AM CDT Respiratory Rate 14 03/28/2024 9:41 AM CDT Oxygen Saturation 98% 03/28/2024 9:41 AM CDT Inhaled Oxygen Concentration - - Weight 133.8 kg (295 lb) 04/19/2024 12:10 PM CDT Height 185.4 cm (6' 1) 03/28/2024 9:41 AM CDT Body Mass Index 38.92 03/28/2024 9:41 AM CDT Plan of Treatment Health Maintenance Due Date Last Done Comments HIV SCREENING 2000 HEPATITIS C SCREENING 09/22/2003 HEPATITIS B VACCINE (1 of 3 - 19+ 3-dose series) 2004 PNEUMOCOCCAL VACCINE (1 of 2 - PCV) 2004 COVID-19 VACCINE ( - 2023-2 5 season) 2024 DEPRESSION SCREENING 07/13/2024 01/05/2024 INFLUENZA VACCINE (Season Ended) 2025 07/17/2019, 06/19/2017 DTAP/TDAP/TD VACCINES (2 - T d or Tdap) 10/26/2033 10/27/2023 ZOSTER VACCINE (1 of 2) 09/27/2035 HIB VACCINE Aged Out No longer eligi ble based on patient's age to complete this topic HPV VACCINE Aged Out No longer eligi ble based on patient's age to complete this topic MENINGOCOCCAL (Group B) VACCINE SHARED DECISION-MAKING Aged Out No longer eligible based on patient's age to complete this topic MENINGOCOCCAL GROUPS A/C/Y/W VACCINE Aged Out No longer eligible b ased on patient's age to complete this topic Medical Devices Implanted Type Area Academic Affairs Dean Device Identifier Shelf Expiration Date Model / Serial / Lot Screw 3.5mm 32mm Ft Slf-Tap Hex Lopro Implanted:Qty: 1 on 10/30/[address] [facility] Left: [employer] [id number] / / Screw 3.5mm 22mm T15 Slf-Tap Lck Tpr Implanted:Qty: 1 on 10/30/[address] [facility] Left: [employer] [id number] / / Screw 3.5mm 26mm T15 Slf-Tap Lck Tpr Implanted:Qty: 1 on 10/30/[address] [facility] Left: [employer] [id number] / / Plate 13 Hl Lopro Elb Olcrn 104x10.7x2.5 Implanted:Qty: 1 on 10/30/[address] [facility] Left: [employer] [id number] / / Screw 3.5mm 20mm T15 Slf-Tap Tip Lck Implanted:Qty: 1 on 10/30/[address] [facility] Left: [employer] [id number] / / Screw 3.5mm 40mm T15 Lck Lopro Slf-Tap Implanted:Qty: 1 on 10/30/[address] [facility] Left: [employer] [id number] / / Screw 3.5mm 55mm T15 Lck Lopro Slf-Tap Implanted:Qty: 1 on 10/30/[address] [facility] Left: [employer] 1312-18-055 / / Explanted Type Area Academic Affairs Dean Device Identifier Shelf Expiration Date Model / Serial / Lot Wire K 1.6mm 150mm 1 End Troc Pnt Ss Sm Explanted:Qty: 1 on 10/30/[address] [facility] Left: [employer] [id number] / / Screw 3.5mm 70mm T15 Lck Lopro Slf-Tap Explanted:Qty: 1 on 10/30/[address] [facility] Left: [employer] 1312-18-070 / / Insurance [facility] EM[employer] [facility] [place] [address] EMPLOYERS [employer] [facility] Advance Directives * Full Code (Latest Code Status on File) Date Activated Date Inactivated Comments 10/27/2023 4:12 PM 10/31/2023 5:01 PM Care Teams Apparatus Lineman Relationship Specialty Start Date End Date Eduardo Masterson DO [address] [place] [id number] PCP - General Family Medicine 10/29/23
--- NOTE | 2024-12-12 09:34 | ED.GENADULT ---
HPI - General Adult General Chief complaint: Wound/Laceration Stated complaint: LACERATION History of Present Illness HPI narrative: see downtime/paper chart Related Data Home Medications ?Medication ?Instructions ?Recorded ?Confirmed ?Last Taken ?Type omeprazole 20 mg tablet,delayed 20 mg PO DAILY 10/16/20 04/18/24 Unknown History release Allergies Allergy/AdvReac Type Severity Reaction Status Date / Time No Known Allergies Allergy Verified 04/18/24 09:15 [facility] Past Medical History Medical History Ankle fracture Family History Family History Mother Obese Diabetes mellitus Social History Social History Smoking packs per day: 1 Smoking cigarettes per day: 20.0 Smoking status: Current every day smoker Tobacco type: cigarettes Alcohol intake: current Alcohol use details: drinks less through the week, more on weekends. Drinks beer Gender identity (if verbalized by the patient): Male Discharge Plan Discharge Clinical Impression: Finger laceration Qualifiers: Encounter type: initial encounter Finger: index finger Damage to nail status: without damage Foreign body presence: without foreign body Laterality: right Qualified Code(s): S61.210A - Laceration without foreign body of right index finger without damage to nail, initial encounter Patient Disposition: Home Condition: Stable Patient Language: Citizen Of [place] Prescriptions: No Action omeprazole 20 mg tablet,delayed release (DR/EC) 20 mg PO DAILY Time of Disposition: 09:35
== END 2024-12-11 17:00 | disposition home or self-care (01) ==
LOC: CHSED 12-12 08:01
PROVIDERS: Emergency Provider Emergency Medicine; PCP Family Medicine
DX: S61.011A Laceration without foreign body of right thumb without damage to nail, initial encounter (principal); W45.8XXA Other foreign body or object entering through skin, initial encounter; Y99.0 Civilian activity done for income or pay; Z20.822 Contact with and (suspected) exposure to COVID-19
CPT/HCPCS: 90471; 90715; 99283